=== PATIENT | male | born 1980 | race African-American/Black ===

== ENCOUNTER 2019-03-22 23:23 | Emergency (ER) | payer OTHER ==
[~2019-03-22] VITALS: Ht 185.4 cm; Wt 83.9 kg
[~2019-03-22 23:23] MED LIST: METH-37 PO; TRAM50TA PO
[2019-03-22 23:33] VITALS: BP 130/80
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
[2019-03-23] MEDS ORDERED: DIPHTH,PERTUSS(ACELL),TET TOX 0.5 ML DISP.SYRIN. VAX IM ONE (00:30)
[2019-03-23] MEDS ORDERED: traMADol 50 MG TABLET PO ONE (00:30)
[2019-03-23] MEDS ORDERED: KETOROLAC 15 MG/ML VIAL. IM ONE (00:30)
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
[2019-03-23] MEDS ORDERED: MELO7.5T29 PO (01:54)
== END 2019-03-23 02:09 | disposition home or self-care (01) ==
LOC: ER 23:23
DX: S01.81XA Laceration without foreign body of other part of head, initial encounter (principal); Y08.89XA Assault by other specified means, initial encounter; Y93.89 Activity, other specified; Y92.89 Other specified places as the place of occurrence of the external cause; Y99.8 Other external cause status
CPT/HCPCS: 12011; 70450; 72125; 90471; 90715; 96372; 99284; J1885